=== PATIENT | female | born 1960 | race Caucasian/White ===

== ENCOUNTER → 2017-02-12 | Outpatient (CLI) | payer BC ==
[~2017-02-12] MED LIST: BACL10TA; ESCI20TA PO; FENO145T2 PO; INVE6TAB2 PO; RALT400 PO; [UNRECOGNIZED DRUG - CODE]; [UNRECOGNIZED DRUG - CODE]; [UNRECOGNIZED DRUG - CODE] XX
--- NOTE | 2017-02-12 12:33 | ECHRPT ---
Indication: HYPOTENSION, DIZZINESS CONCLUSIONS Normal left ventricular size. Wall thickness is normal. The left ventricular systolic function is normal with an estimated ejection fraction in the range of 55-60%. Trace to mild aortic valve regurgitation. BP: / HR: Rhythm: Sinus MEASUREMENTS (Male / Female) Normal Values Technical Quality:Fair 2D ECHO LV Diastolic Diameter PLAX 3.7 cm 4.2 - 5.9 / 3.9 - 5.3 cm LV Systolic Diameter PLAX 2.6 cm IVS Diastolic Thickness 0.8 cm 0.6 - 1.0 / 0.6 - 0.9 cm LVPW Diastolic Thickness 0.8 cm 0.6 - 1.0 / 0.6 - 0.9 cm LV Relative Wall Thickness 0.4 RV Internal Dim ED PLAX 1.9 cm LVOT Diameter 1.9 cm Aortic Root Diameter 2.2 cm LA Systolic Diameter LX 2.1 cm 3.0 - 4.0 / 2.7 - 3.8 cm M-MODE AV Cusp Separation MM 2.0 cm DOPPLER AV Peak Velocity 139.0 cm/s AV Peak Gradient 7.7 mmHg AV Mean Gradient 4.0 mmHg AV Velocity Time Integral 25.4 cm LVOT Peak Velocity 94.7 cm/s LVOT Peak Gradient 3.6 mmHg LVOT Velocity Time Integral 17.8 cm AV Area Cont Eq vti 2.0 cm AV Area Cont Eq pk 1.9 cm Mitral E Point Velocity 62.2 cm/s Mitral A Point Velocity 71.6 cm/s Mitral E to A Ratio 0.9 LV E' Lateral Velocity 7.6 cm/s Mitral E to LV E' Lateral Ratio 8.2 LV E' Septal Velocity 8.0 cm/s Mitral E to LV E' Septal Ratio 7.8 PV Peak Velocity 61.7 cm/s PV Peak Gradient 1.5 mmHg FINDINGS LEFT VENTRICLE Normal left ventricular size. Wall thickness is normal. The left ventricular systolic function is normal with an estimated ejection fraction in the range of 55-60%. RIGHT VENTRICLE Normal right ventricular size and systolic function. LEFT ATRIUM The left atrial size is normal. RIGHT ATRIUM The right atrial size is normal. ATRIAL SEPTUM Normal atrial septal thickness without atrial level shunting by limited color doppler interrogation. AORTA The aortic root and proximal ascending aorta are normal in size on limited imaging. MITRAL VALVE Structurally normal mitral valve. No mitral valve stenosis or regurgitation. AORTIC VALVE Trace to mild aortic valve regurgitation. TRICUSPID VALVE Structurally normal tricuspid valve. No tricuspid valve stenosis or regurgitation. PULMONARY VALVE No pulmonary valve regurgitation or stenosis. VESSELS The inferior vena cava is normal in size. PERICARDIUM No pericardial effusion. Garrison Nielsen MD (Electronically Signed) Final Date:12 February 2017 12:32
--- NOTE | 2017-02-15 13:27 | HM ---
Date Performed: 02/12/2017 Time Performed: 09:47:00 HOOKUP DATE: 02/12/17 09:47:00 AM Jenny ANALYSIS START TIME: 02/12/2017 9:52:00 AM ANALYSIS END TIME: 02/13/2017 9:55:59 AM PATIENT AGE: 56 PATIENT HEIGHT PATIENT WEIGHT DRUG LIST PATIENT DIAGNOSIS: r94.31 TEST NARRATIVE: The patient's average heart rate was 68 BPM. Heart rates greater than 120 B PM were noted < 1% of the time. Heart rates less than 50 BPM were noted 1% of the time. No pause s exceeding 2.0 seconds were noted. 140 ventricular ectopics, which represented < 1% of the total beat count, were noted. The highest ventricular ectopic frequency occurred from 06:00 PM to 07:00 P M Jenny. During this time 115 VE(s) occurred. Ventricular ectopics were observed as 138 isolated beat (s) and as 1 couplet(s). No runs were noted. Some of the ventricular beats occurred in bigeminal cy cles. No supraventricular ectopics were noted. No episodes of ST depression (defined as -1.0 mm or more) were noted in channel 1. No episodes of ST depression (defined as -1.0 mm or more) were noted in channel 2. No episodes of ST depression (defined as -1.0 mm or more) were noted in channel 3. TEST INTERPRETATION: Patient has rare runs of ventricular bigeminy that only lasts a few cycles. One couplet of PVCs was seen. No other complex ventricular ectopy present. No atrial ectopy was pres ent. No heart block was seen and there were no prolonged pauses. No other complex arrhythmias were pr esent. No patient diary included. Overall, this is a very benign appearing Holter monitor with rare a mount of ventricular ectopy but no complex forms. No atrial ectopy present and heart rate minimum and maximuma appear to be appropriate. Signed by : Napoleon Pierre
== END ==
LOC: HECH 08:03
PROVIDERS: ATTEND Specialist
DX: R00.1 Bradycardia, unspecified (principal); R94.31 Abnormal electrocardiogram [ECG] [EKG]; R42 Dizziness and giddiness
CPT/HCPCS: 93225; 93226; 93306